=== PATIENT | female | born 1970 | race Two or more races ===

== ENCOUNTER 2017-12-12 12:46 | Emergency (ER) | payer SELFPAY ==
[~2017-12-12] VITALS: Ht 157.5 cm; Wt 74.8 kg
[~2017-12-12 12:46] MED LIST: SEPTRA DS TABL1 EACH PO
[2017-12-12] MEDS ORDERED: LISINOPRIL10 MG PO (13:10)
[2017-12-12] MEDS ORDERED: METFORMIN HCL500 MG PO (13:10)
[2017-12-12] MEDS ORDERED: LOVASTATIN20 MG PO (13:11)
--- NOTE | 2017-12-13 14:52 | EKG ---
[facility] [address] [facility] [place] [address] Signed Normal sinus rhythm Rwkqc-Emmvzaexq-Rzsqe Abnormal ECG No previous ECGs available Confirmed by BRETT HARKINS MD ([id number]) on 12/13/2017 2:51:54 PM Electronically Signed By: BRETT HARKINS MD 12/13/17 1452 PATIENT NAME: ROGELIO WATKINSJS Electrocardiogram DATE OF : 66 PHYSICIAN: BRETT HARKINS MD REPORT #: [id number] REPORT IS CONFIDENTIAL AND NOT TO BE RELEASED WITHOUT AUTHORIZATION
== END 2017-12-12 14:55 | disposition home or self-care (01) ==
LOC: ED 12:46
DX: R55 Syncope and collapse (principal); Z79.84 Long term (current) use of oral hypoglycemic drugs; Z79.899 Other long term (current) drug therapy
CPT/HCPCS: 80053; 81001; 84484; 85025; 93005; 93010; 99283